=== PATIENT | female | born 1985 | race Caucasian/White ===

== ENCOUNTER 2017-03-03 20:20 | Emergency (ER) | payer OTHER ==
[2017-03-03 21:07] VITALS: BP 139/92
== END 2017-03-03 21:07 | disposition home or self-care (01) ==
LOC: ED 20:20
DX: H92.02 Otalgia, left ear (principal); J32.9 Chronic sinusitis, unspecified; J45.909 Unspecified asthma, uncomplicated; F41.9 Anxiety disorder, unspecified

== ENCOUNTER 2017-04-25 20:53 | Emergency (ER) | payer OTHER ==
[2017-04-25 21:39] VITALS: BP 123/77
== END 2017-04-25 21:40 | disposition home or self-care (01) ==
LOC: ED 20:53
DX: S43.402A Unspecified sprain of left shoulder joint, initial encounter (principal); Z88.8 Allergy status to other drugs, medicaments and biological substances; X58.XXXA Exposure to other specified factors, initial encounter; Y93.89 Activity, other specified; Y92.89 Other specified places as the place of occurrence of the external cause; Y99.8 Other external cause status

== ENCOUNTER 2017-09-29 12:21 | Emergency (ER) | payer OTHER ==
[~2017-09-29] VITALS: Ht 170.2 cm; Wt 113.0 kg
[2017-09-29 12:32] VITALS: Ht 170.2 cm; Wt 113.0 kg
[2017-09-29 13:28] LABS: BASOPHIL % 1.5 % (0-2); PLATELET COUNT 369 x10^3mcL (130-400); RED CELL DISTRIBUTION WIDTH 13.3 % (11.5-14.5)
[2017-09-29 14:30] LABS: CALCIUM 8.7 mg/dL (8.5-10.1); CARBON DIOXIDE 30.3 mmol/L (21-32); CHLORIDE SERUM 103 mmol/L (98-107); CREATININE SERUM 0.7 mg/dL (0.6-1.0); GFR1 > 60 mL/min; GLUCOSE SERUM 97 mg/dL (74-106); POTASSIUM SERUM 3.6 mmol/L (3.5-5.1); SODIUM SERUM 139 mmol/L (136-145)
[2017-09-29 14:43] LABS: ALKALINE PHOSPHATASE 85 U/L (46-116); ALT/SGPT 30 U/L (14-59); AST/SGOT 15 U/L (15-37); BILIRUBIN TOTAL 0.5 mg/dL (0.20-1.00)
[2017-09-29 14:45] LABS: ALBUMIN 3.2 g/dL (3.4-5.0)
[2017-09-29 15:09] VITALS: BP 124/75
== END 2017-09-29 15:09 | disposition home or self-care (01) ==
LOC: ED 12:21
PROVIDERS: Emergency Medicine
DX: R07.89 Other chest pain (principal); J45.909 Unspecified asthma, uncomplicated; F41.9 Anxiety disorder, unspecified
CPT/HCPCS: 36415; Q0092